=== PATIENT | female | born 1975 | race Caucasian/White ===

== ENCOUNTER 2017-06-13 19:40 | Emergency (ER) | payer OTHER ==
[~2017-06-13] VITALS: Ht 154.9 cm; Wt 66.5 kg
[~2017-06-13 19:40] MED LIST: ACET500C5 PO; BACTDS PO; CEPH-443 PO; IBUP-1542 PO; IBUP-725; NITR-58 PO
[2017-06-13 19:49] VITALS: Ht 154.9 cm; Wt 66.5 kg
[2017-06-13] MEDS ORDERED: ONDANSETRON 4 MG INJ IV STA (20:12)
[2017-06-13] MEDS ORDERED: ACETAMINOPHEN 325 MG TAB PO STA (20:12)
[2017-06-13] MEDS ORDERED: SOD CHLORIDE 0.9% 1,000 ML IV STA (20:12)
--- NOTE | 2017-06-13 20:46 | ERD ---
ER Documentation Chief Complaint Date/Time DATE: 06/13/17 TIME: 20:39 Chief Complaint right flank pain x 1 day, states 9 weeks , denies vb. on atb HPI This is a 41-year-old female, 7 para 4 sab 2, who is approximately 9 weeks , presents the emergency department for complaints of gradually worsening right flank pain which began 2 hours prior to arrival. Patient states that she has been experiencing intermittent sharp pain which she currently rates at a 0 but increases up to a 7. Patient denies other abdominal pain, dysuria, hematuria, nausea, vomiting, or diarrhea. Patient denies any vaginal bleeding. She denies fever. Patient states that 2 weeks ago she was diagnosed with a UTI and given a prescription for amoxicillin. Patient states that she frequently gets urinary tract infections and is being followed by her primary care. She also notes that she is undergoing a dental procedure tomorrow and therefore is still taking the amoxicillin. ROS All systems reviewed and are negative except as per history of present illness. Medications Home Meds Active Scripts Acetaminophen* (Tylenol*) 325 Mg Tablet, 2 TAB PO Q6 Y for PAIN AND OR ELEVATED TEMP, #20 TAB Prov:DARREN PEREZ PA-C 06/13/17 Cephalexin* (Keflex*) 500 Mg Capsule, 500 MG PO QID for 7 Days, CAP Prov:HEBER NEWTON ECONOMIC MANAGER 06/27/16 Acetaminophen* (Tylophen*) 500 Mg Capsule, 1 CAP PO Q6H Y for PAIN AND OR ELEVATED TEMP, #20 CAP Prov:HEBER NEWTON NP 06/27/16 Ibuprofen* (Motrin*) 600 Mg Tab, 600 MG PO Q6, #20 TAB Prov:MARIELA TAMAYO I. ECONOMIC MANAGER 02/19/16 Sulfamethoxazole-Trimethoprim* (Bactrim* DS) 800-160 Mg Tab, 1 TAB PO BID, #14 TAB Prov:MARIELA TAMAYO I. ECONOMIC MANAGER 02/19/16 Ibuprofen* (Motrin*) 600 Mg Tab, 600 MG PO BID Y for PAIN, #30 TAB 0 Refills Prov:STEPHAN SARABIA PA-C 11/20/15 Nitrofurantoin Monohyd Macrocr* (Macrobid*) 100 Mg Capsr, 100 MG PO BID for 14 Days, CAP 0 Refills Prov:STEPHAN SARABIA PA-C 11/20/15 Reported Medications Ibuprofen (Motrin) 400 Mg Tablet 08/12/10 Allergies Allergies: Coded Allergies: No Known Allergy (Verified , 10/13/11) PMhx/Soc History of Surgery: Yes (CHOLECYSTECTOMY) Anesthesia Reaction: No Hx Neurological Disorder: No Hx Respiratory Disorders: No Hx Cardiac Disorders: No Hx Psychiatric Problems: No Hx Miscellaneous Medical Probl: No Hx Alcohol Use: No Hx Substance Use: No Hx Tobacco Use: No Physical Exam Vitals Vital Signs Date Time Temp Pulse Resp B/P Pulse Ox O2 Delivery O2 Flow Rate FiO2 06/13/17 19:49 99.8 87 20 128/67 97 Physical Exam Const: Well-developed, well-nourished, in no acute distress Head: Atraumatic Eyes: Normal Conjunctiva ENT: Normal External Ears, Nose and Mouth. Neck: Full range of motion..~ No meningismus. Resp: Clear to auscultation bilaterally Cardio: Regular rate and rhythm, no murmurs Abd: Soft, non tender, non distended. Normal bowel sounds Skin: No petechiae or rashes Back: Right-sided flank tenderness to palpation. No midline tenderness. Ext: No cyanosis, or edema : Deferred Neur: Awake and alert Psych: Normal Mood and Affect Result Diagram: 06/13/17203706/13/172037 Results 24 hrs Laboratory Tests Test 06/13/17 20:38 White Blood Count 11.710^3/ul Red Blood Count 4.3810^6/ul Hemoglobin 13.6g/dl Hematocrit 39.0% Mean Corpuscular Volume 89.0fl Mean Corpuscular Hemoglobin 31.1pg Mean Corpuscular Hemoglobin Concent 34.9g/dl Red Cell Distribution Width 11.9% Platelet Count 89084^3/UL Mean Platelet Volume 9.6fl Neutrophils % 65.6% Lymphocytes % 23.8% Monocytes % 6.8% Eosinophils % 2.8% Basophils % 0.4% Neutrophils # 7.710^3/ul Lymphocytes # 2.810^3/ul Monocytes # 0.810^3/ul Eosinophils # 0.310^3/ul Basophils # 0.110^3/ul Nucleated Red Blood Cells # 0.010^3/ul Urine Color STRAW Urine Clarity SLIGHTLY CLOUDY Urine pH 7.0 Urine Specific [place] 1.008 Urine Ketones NEGATIVEmg/dL Urine Nitrite NEGATIVEmg/dL Urine Bilirubin NEGATIVEmg/dL Urine Urobilinogen NEGATIVEmg/dL Urine Leukocyte Esterase NEGATIVELeu/ul Urine Microscopic RBC 5/HPF Urine Microscopic WBC 5/HPF Urine Squamous Epithelial Cells FEW/HPF Urine Hemoglobin NEGATIVEmg/dL Urine Glucose NEGATIVEmg/dL Urine Total Protein NEGATIVEmg/dl Sodium Level 140mmol/L Potassium Level 3.9mmol/L Chloride Level 98mmol/L Carbon Dioxide Level 28mmol/L Anion Gap 18 Blood Urea Nitrogen 12mg/dl Creatinine 0.50mg/dl Glucose Level 96mg/dl Calcium Level 9.7mg/dl Total Bilirubin 0.1mg/dl Direct Bilirubin 0.00mg/dl Indirect Bilirubin 0.1mg/dl Aspartate Amino Transf (AST/SGOT) 24IU/L Alanine Aminotransferase (ALT/SGPT) 34IU/L Alkaline Phosphatase 63IU/L Total Protein 7.5g/dl Albumin 4.1g/dl Globulin 3.40g/dl Albumin/Globulin Ratio 1.20 Beta HCG, Quantitative 21971.0mIU/ml Current Medications Medications (Trade) Dose Ordered Sig/Elyse Route PRN Reason Start Time Stop Time Status Last Admin Dose Admin Sodium Chloride (NS) 1,000 ml @ 1,000 mls/hr Q1H STAT IV 06/13/17 20:12 06/13/17 21:11 DC 06/13/17 20:48 Acetaminophen (Tylenol Tab) 650 mg ONCE STAT PO 06/13/17 20:12 06/13/17 20:22 DC 06/13/17 20:48 Ondansetron HCl (Zofran Inj) 4 mg ONCE STAT IV 06/13/17 20:12 06/13/17 20:22 DC Procedures/MDM PROCEDURE: US OB. CLINICAL INDICATION: , lower back pain. Clinical estimate gestational age is 8 weeks 6 days with estimated date of delivery 01/17/2018 TECHNIQUE: Transabdominal and transvaginal views of the pelvis are available for review. COMPARISON: No prior studies are available for comparison. FINDINGS: [place]-rump length: 1.77 cm, 8 weeks 2 days gestational age Mean gestational sac diameter: 2.98 cm, 8 weeks 0 days gestational age heart rate: No embryonic heart activity seen. Ultrasound estimated gestational age: 8 weeks 1 day Neither ovary is seen. No adnexal mass or free intrapelvic fluid is seen. IMPRESSION: Failed intrauterine . Discussed with emergency department charge nurse Merle at 10:58 p.m. on 06/13/2017. RPTAT: HJES .Elvis Dangelo MD, Date Time Electronically viewed and signed by .Elvis Dangelo MD, on 06/13/2017 23:03 .S/ CC: DARREN PEREZ PA-C This is a 41-year-old female who is approximately 9 weeks who presents the emergency department for complaints of right-sided flank pain which began today. She was diagnosed with a UTI 2 weeks ago and is currently taking amoxicillin for both her UTI and an upcoming dental procedure. Patient denies nausea, vomiting, diarrhea, vaginal bleeding, dysuria, hematuria, or fever. Patient is well-appearing and nontoxic upon arrival. Vital signs reviewed. Patient afebrile, not tachycardic, normotensive and non-hypoxic upon arrival. Patient received Tylenol as well as a bolus of fluids while in the emergency department. CBC showed mildly elevated white blood cells however little evidence of significant systemic infection or severe anemia. CMP showed no evidence of electrolyte abnormalities, severe acidosis, alkalosis , renal failure, or liver disease. UA showed no evidence of acute infection or hematuria. Urine was sent for culture as patient has history of chronic UTIs[place] [address]. This is less than expected hCG levels at 9 weeks which be between 25,000 and 288,000. Pelvic ultrasound with evidence of a failed intrauterine as there is no heart rate. History and Physical As Well As Lab and Imaging Studies, Consistent with failed intrauterine at Approximately 9 Weeks Gestation. Patient Denies Vaginal Bleeding or Discharge Currently. Low suspicion for acute urinary tract infection, pyelonephritis, ovarian torsion, pancreatitis, cholecystitis, severe systemic infection or sepsis. Flank pain likely the result of musculoskeletal strain or beginning stages of uterine cramping. I Instructed the patient to follow-up at this emergency department or with OB/ BOLT HEADER specialist in 48 hours for repeat beta hCG and ultrasound. I informed her of the potential for D&C procedure by her HYDROELECTRIC PLANT MAINTAINER after her repeat assessment. All lab work and imaging studies were provided to patient. She expressed understanding of and agreement with plan. Based on patient's history of present illness and physical examination the decision was made to discharge. The patient was re-evaluated after ED treatment and stabilizing measures, and symptoms have improved. There is no evidence of life threatening injuries or illnesses at this time. On re-examination, patient resting in no distress, stable vital signs, reports feeling better and safe for discharge with strict follow-up in 48 hours. Patient given return precautions. Departure Diagnosis: Primary Impression: Flank pain Additional Impressions: Termination of (fetus) demise DARREN PEREZ PA-C Jun 13, 2017 20:46
[2017-06-13 20:55] LABS: ADD SCAN DIFF NO
[2017-06-13 21:00] LABS: BASOPHIL # 0.1 10^3/ul (0.0-0.1); BASOPHILS % 0.4 % (0.0-2.0); EOSINOPHILS # 0.3 10^3/ul (0.0-0.5); EOSINOPHILS % 2.8 % (0.0-7.0); HEMOGLOBIN 13.6 g/dl (12.0-16.0); LYMPHOCYTES # 2.8 10^3/ul (0.8-2.9); LYMPHOCYTES % 23.8 % (15.0-51.0); MEAN CORPUSCULAR HEMOGLOBIN 31.1 pg (29.0-33.0); MEAN CORPUSCULAR HGB CONC 34.9 g/dl (32.0-37.0); MEAN PLATELET VOLUME 9.6 fl (7.4-10.4); MONOCYTE # 0.8 10^3/ul (0.3-0.9); MONOCYTES % 6.8 % (0.0-11.0); NEUTROPHIL # 7.7 10^3/ul (1.6-7.5); NEUTROPHILS % 65.6 % (39.0-77.0); PLATELET COUNT 290 10^3/UL (140-415); RED BLOOD COUNT 4.38 10^6/ul (4.20-5.40); RED CELL DISTRIBUTION WIDTH 11.9 % (11.5-14.5); WHITE BLOOD COUNT 11.7 10^3/ul (4.8-10.8)
[2017-06-13 21:07] LABS: ADD UMIC NO; UR ASCORBIC ACID NEGATIVE (NEGATIVE); UR BILIRUBIN (Dip) NEGATIVE (NEGATIVE); UR BLOOD (Dip) NEGATIVE (NEGATIVE); UR CLARITY SLIGHTLY CLOUDY (CLEAR); UR COLOR STRAW (YELLOW); UR GLUCOSE (Dip) NEGATIVE (NEGATIVE); UR KETONES (Dip) NEGATIVE (NEGATIVE); UR LEUKOCYTE ESTERASE (Dip) NEGATIVE Leu/ul (NEGATIVE); UR NITRITE (Dip) NEGATIVE (NEGATIVE); UR RBC 5 /HPF (0-5); UR SPECIFIC GRAVITY (Dip) 1.008 (1.003-1.030); UR SQUAMOUS EPITHELIAL CELL FEW /HPF (FEW); UR TOTAL PROTEIN (Dip) NEGATIVE (NEGATIVE); UR UROBILINOGEN (Dip) NEGATIVE (NEGATIVE)
[2017-06-13 21:18] LABS: ALBUMIN 4.1 g/dl (3.3-4.9); ALBUMIN/GLOBULIN RATIO 1.2; BILIRUBIN,INDIRECT 0.1 mg/dl (0-1.1); BILIRUBIN,TOTAL 0.1 mg/dl (0.2-1.3); CALCIUM 9.7 mg/dl (8.4-10.2); CREATININE 0.5 mg/dl (0.44-1.00); POTASSIUM 3.9 mmol/L (3.5-5.1); TOTAL PROTEIN 7.5 g/dl (6.1-8.1)
--- NOTE | 2017-06-13 23:04 | RADRPT ---
PROCEDURE: US OB. CLINICAL INDICATION: Vaginal bleeding, , lower back pain. Clinical estimate gestational age is 8 weeks 6 days with estimated date of delivery 01/17/2018 TECHNIQUE: Transabdominal and transvaginal views of the pelvis are available for review. COMPARISON: No prior studies are available for comparison. FINDINGS: [place]-rump length:1.77 cm, 8 weeks 2 days gestational age Mean gestational sac diameter: 2.98 cm, 8 weeks 0 days gestational age heart rate:No embryonic heart activity seen. Ultrasound estimated gestational age:8 weeks 1 day Neither ovary is seen. No adnexal mass or free intrapelvic fluid is seen. IMPRESSION: Failed intrauterine . Discussed with emergency department charge nurse Merle at 10:58 p.m. on 06/13/2017. RPTAT: HJES .Elvis Dangelo MD, MD Date Time Electronically viewed and signed by .Elvis Dangelo MD, MD on 06/13/2017 23:03 .S/
[2017-06-13] MEDS ORDERED: ACET325T33 PO (23:26)
[2017-06-13 23:53] VITALS: BP 106/59; PULSE 69; RESP 18; TEMP 98.1
== END 2017-06-13 23:55 | disposition home or self-care (01) ==
LOC: FTE 19:40
DX: O26.891 Other specified pregnancy related conditions, first trimester (principal); R10.9 Unspecified abdominal pain; O04.89 (Induced) termination of pregnancy with other complications; O02.1 Missed abortion
CPT/HCPCS: 76801; 76817; 80053; 81001; 84702; 85025; 87086; J7030; Z7610; 36415; 81003

== ENCOUNTER 2017-06-17 12:10 | Emergency (ER) | payer OTHER ==
[~2017-06-17] VITALS: Ht 154.9 cm; Wt 65.0 kg
[~2017-06-17 12:10] MED LIST changes: +ACET325T33 PO
[2017-06-17 12:13] VITALS: Ht 154.9 cm; Wt 65.0 kg
--- NOTE | 2017-06-17 13:48 | ERD ---
ER Documentation Chief Complaint Date/Time DATE: 06/17/17 TIME: 13:44 Chief Complaint VAG BLEED () X 2 DAYS, SCHEDULED FOR D/C TOMORROW HPI This is a 41-year-old female presenting to the emergency department for vaginal bleeding 2 days. Patient is currently 8 weeks and was scheduled for a D&C today here with Dr. Martinez. Patient states the D&C was canceled and patient was told to come in tomorrow for procedure. Patient presents because pelvic pain has worsened and patient continues to have vaginal bleeding. Patient rating pain 9/10 to suprapubic region. No fevers or chills. No nausea or vomiting. ROS All systems reviewed and are negative except as per history of present illness. Medications Home Meds Active Scripts Ibuprofen* (Motrin*) 600 Mg Tab, 600 MG PO Q6, #15 TAB Prov:FRANDY SALGADO NP 06/17/17 Acetaminophen* (Tylenol*) 325 Mg Tablet, 2 TAB PO Q6 Y for PAIN AND OR ELEVATED TEMP, #20 TAB Prov:DARREN PEREZ PA-C 06/13/17 Cephalexin* (Keflex*) 500 Mg Capsule, 500 MG PO QID for 7 Days, CAP Prov:HEBER NEWTON NP 06/27/16 Acetaminophen* (Tylophen*) 500 Mg Capsule, 1 CAP PO Q6H Y for PAIN AND OR ELEVATED TEMP, #20 CAP Prov:HEBER NEWTON NP 06/27/16 Ibuprofen* (Motrin*) 600 Mg Tab, 600 MG PO Q6, #20 TAB Prov:MARIELA TAMAYO NP 02/19/16 Sulfamethoxazole-Trimethoprim* (Bactrim* DS) 800-160 Mg Tab, 1 TAB PO BID, #14 TAB Prov:MARIELA TAMAYO NP 02/19/16 Ibuprofen* (Motrin*) 600 Mg Tab, 600 MG PO BID Y for PAIN, #30 TAB 0 Refills Prov:STEPHAN SARABIA PA-C 11/20/15 Nitrofurantoin Monohyd Macrocr* (Macrobid*) 100 Mg Capsr, 100 MG PO BID for 14 Days, CAP 0 Refills Prov:STEPHAN SARABIA PA-C 11/20/15 Reported Medications Ibuprofen (Motrin) 400 Mg Tablet 08/12/10 Discontinued Scripts Hydrocodone/Acetaminophen ([place] 5-325 Tablet) 1 Each Tablet, 1 TAB PO Q6H Y for PAIN, #7 TAB Prov:FRANDY SALGADO NP 06/17/17 Allergies Allergies: Coded Allergies: No Known Allergy (Verified , 06/17/17) PMhx/Soc History of Surgery: Yes (CHOLECYSTECTOMY) Anesthesia Reaction: No Hx Neurological Disorder: No Hx Respiratory Disorders: No Hx Cardiac Disorders: No Hx Psychiatric Problems: No Hx Miscellaneous Medical Probl: No Hx Alcohol Use: No Hx Substance Use: No Hx Tobacco Use: No Smoking Status: Never smoker Physical Exam Vitals Vital Signs Date Time Temp Pulse Resp B/P Pulse Ox O2 Delivery O2 Flow Rate FiO2 06/17/17 12:13 97.6 82 18 115/71 96 Physical Exam Const: No acute distress, alert Head: Atraumatic Eyes: Normal Conjunctiva ENT: Normal External Ears, Nose and Mouth. Neck: Full range of motion..~ No meningismus. Resp: Clear to auscultation bilaterally Cardio: Regular rate and rhythm, no murmurs Abd: Soft, non tender, non distended. Normal bowel sounds Skin: No petechiae or rashes Back: No midline or flank tenderness Ext: No cyanosis, or edema Neur: Awake and alert Psych: Normal Mood and Affect Results 24 hrs Current Medications Medications (Trade) Dose Ordered Sig/Elyse Route PRN Reason Start Time Stop Time Status Last Admin Dose Admin Acetaminophen/ Hydrocodone Bitart (Clyde (5/325)) 1 tab ONCE ONCE PO 06/17/17 14:00 06/17/17 14:30 DC Ibuprofen (Motrin) 600 mg ONCE ONCE PO 06/17/17 14:30 06/17/17 14:31 DC 06/17/17 14:32 Procedures/MDM MDM: This is a 41-year-old female presenting to the emergency department with pelvic pain and vaginal bleeding 2 days. Patient is currently 8 weeks and was scheduled today for a D&C here with Dr. Martinez. Patient states procedure was canceled and patient was told to come in tomorrow for procedure. Patient states she would like to have procedure done today because pain is severe. Patient rating pain 9/10 to suprapubic region. No active vomiting. Patient is afebrile and vital signs are stable. Spoke with laborist construction engineer, Dr. Hodge who instructed me to call Dr. Martinez. Called Dr. Matrinez at [phone] who instructed me to send patient home with prescription for Ibuprofen and states he will see patient tomorrow as scheduled procedure. Patient does not want Clyde or anything stronger than ibuprofen Patient instructed to follow-up with [facility] RN Dr. Martinez. Return to ED for any high fever, chest pain, difficulty breathing, shortness breath, wheezing, vomiting, diarrhea, abdominal pain or any new or worsening symptoms. Patient verbalizes understanding. All questions answered at discharge. Departure Diagnosis: Primary Impression: Vaginal bleeding in patient at less than 20 weeks gestation Condition: Stable FRANDY SALGADO NP Jun 17, 2017 13:48
[2017-06-17] MEDS ORDERED: HYDR-906 PO (14:03)
[2017-06-17] MEDS: HYDROCODONE/APAP (5/325) TAB PO ONE ×2 (14:25→14:27)
[2017-06-17] MEDS ORDERED: IBUPROFEN 600 MG TAB PO ONE (14:30)
[2017-06-17] MEDS ORDERED: IBUP-1542 PO (14:43)
[2017-06-18] MEDS ORDERED: CEPH500C PO (17:22)
== END 2017-06-17 15:54 | disposition home or self-care (01) ==
LOC: FTE 12:10
DX: O20.9 Hemorrhage in early pregnancy, unspecified (principal); Z3A.08 8 weeks gestation of pregnancy
CPT/HCPCS: Z7502; Z7610; 99283

== ENCOUNTER 2017-06-18 16:39 | Observation (INO) | payer OTHER ==
[~2017-06-18] VITALS: Ht 154.9 cm; Wt 67.3 kg
[~2017-06-18 16:39] MED LIST changes: -CEPH500C PO; -DIPHENHYDRAMINE 50 MG INJ IV PRN; -FENTAnyl 50 MCG/ML VIAL IV PRN; -LACTATED RINGER'S 1,000 ML IV SCH; -MEPERIDINE 25 MG INJ IV PRN; -ONDANSETRON 4 MG INJ IV PRN
--- NOTE | 2017-06-18 17:16 | ERA ---
ER Documentation Chief Complaint Date/Time DATE: 06/18/17 TIME: 17:14 Chief Complaint pelvic pain x 5 days, needs d&C, 8 weeks HPI This is a 41-year-old female who is a at approximately 8 weeks who was sent from same-day clinic. The patient was seen by Dr. Martinez for a D&C but the patient had some food. He wants the patient to be admitted to the hospital. Initially said that he would not admit the patient therefore he sent her to the emergency room. The patient has abdominal cramping that is 10 out of 10 with associated scant vaginal bleeding that is consistent with her baseline. No fevers or chills. ROS All systems reviewed and are negative except as per history of present illness. Medications Home Meds Active Scripts Ibuprofen* (Motrin*) 600 Mg Tab, 600 MG PO Q6, #15 TAB Prov:FRANDY SALGADO NP 06/17/17 Acetaminophen* (Tylenol*) 325 Mg Tablet, 2 TAB PO Q6 Y for PAIN AND OR ELEVATED TEMP, #20 TAB Prov:DARREN PEREZ PA-C 06/13/17 Cephalexin* (Keflex*) 500 Mg Capsule, 500 MG PO QID for 7 Days, CAP Prov:HEBER NEWTON NP 06/27/16 Acetaminophen* (Tylophen*) 500 Mg Capsule, 1 CAP PO Q6H Y for PAIN AND OR ELEVATED TEMP, #20 CAP Prov:HEBER NEWTON NP 06/27/16 Ibuprofen* (Motrin*) 600 Mg Tab, 600 MG PO Q6, #20 TAB Prov:MARIELA TAMAYO NP 02/19/16 Sulfamethoxazole-Trimethoprim* (Bactrim* DS) 800-160 Mg Tab, 1 TAB PO BID, #14 TAB Prov:MARIELA TAMAYO NP 02/19/16 Ibuprofen* (Motrin*) 600 Mg Tab, 600 MG PO BID Y for PAIN, #30 TAB 0 Refills Prov:STEPHAN SARABIA PA-C 11/20/15 Nitrofurantoin Monohyd Macrocr* (Macrobid*) 100 Mg Capsr, 100 MG PO BID for 14 Days, CAP 0 Refills Prov:STEPHAN SARABIA PA-C 11/20/15 Reported Medications Ibuprofen (Motrin) 400 Mg Tablet 08/12/10 Discontinued Scripts Hydrocodone/Acetaminophen ([place] 5-325 Tablet) 1 Each Tablet, 1 TAB PO Q6H Y for PAIN, #7 TAB Prov:FRANDY SALGADO QUALITY TECHNICIAN 06/17/17 Allergies Allergies: Coded Allergies: No Known Allergy (Verified , 06/17/17) PMhx/Soc History of Surgery: Yes (CHOLECYSTECTOMY) Anesthesia Reaction: No Hx Neurological Disorder: No Hx Respiratory Disorders: No Hx Cardiac Disorders: No Hx Psychiatric Problems: No Hx Miscellaneous Medical Probl: No Hx Alcohol Use: No Hx Substance Use: No Hx Tobacco Use: No FmHx Family History: No diabetes Physical Exam Vitals Vital Signs Date Time Temp Pulse Resp B/P Pulse Ox O2 Delivery O2 Flow Rate FiO2 06/18/17 16:50 99.1 74 18 129/69 100 Physical Exam General: Uncomfortable Head: Normocephalic, atraumatic. Eyes: EOM intact ENT: Moist mucous membranes Neck: Full ROM Respiratory: No respiratory distress Cardiovascular: Good capillary refil Abdominal: Nondistended, mild diffuse tenderness : Deferred MSK: No edema, no unilateral swelling, 5/5 strength Neurologic: Alert and oriented, moving all extremities, normal speech, steady gait Skin: No rash Psych: Normal mood Procedures/MDM The patient was sent to the emergency room to be admitted even though there is a bed available. Dr. Martinez was contacted. He states that the patient should be admitted even though he sent her from same-day surgery. He states that he will admit the patient on there is a bed available on the fourth floor. The patient had a medical screening examination in the emergency department and was taken directly to the floor for further management and treatment of missed . He states that he will take the patient to surgery at 9 AM tomorrow. Departure Diagnosis: Primary Impression: Missed Condition: Stable RAJI WAHL MD Jun 18, 2017 17:16
[2017-06-18] MEDS ORDERED: CEPH500C PO (17:22)
[2017-06-18] MEDS ORDERED: KETOROLAC 30 MG INJ IV STA (18:15)
[2017-06-18 18:22] VITALS: Ht 154.9 cm; Wt 67.3 kg
[2017-06-18 18:30] VITALS: BP 126/72; PULSE 75; RESP 18
[2017-06-18] MEDS ORDERED: LACTATED RINGER'S 1,000 ML IV SCH (19:00)
[2017-06-18 19:28] LABS: BASOPHILS % 0.3 % (0.0-2.0); EOSINOPHILS # 0.5 10^3/ul (0.0-0.5); HEMOGLOBIN 12.8 g/dl (12.0-16.0); LYMPHOCYTES # 2.8 10^3/ul (0.8-2.9); LYMPHOCYTES % 23.4 % (15.0-51.0); MEAN CORPUSCULAR HEMOGLOBIN 31.1 pg (29.0-33.0); MEAN CORPUSCULAR HGB CONC 34.6 g/dl (32.0-37.0); MEAN PLATELET VOLUME 9.6 fl (7.4-10.4); MONOCYTE # 0.7 10^3/ul (0.3-0.9); MONOCYTES % 5.6 % (0.0-11.0); NEUTROPHIL # 7.8 10^3/ul (1.6-7.5); NEUTROPHILS % 66.2 % (39.0-77.0); PLATELET COUNT 246 10^3/UL (140-415); RED BLOOD COUNT 4.11 10^6/ul (4.20-5.40); RED CELL DISTRIBUTION WIDTH 11.9 % (11.5-14.5); WHITE BLOOD COUNT 11.9 10^3/ul (4.8-10.8)
[2017-06-18 19:43] LABS: INR 0.92; PROTIME 12.4 Sec (12.2-14.2)
[2017-06-18 19:44] LABS: PARTIAL THROMBOPLASTIN TIME 26.8 Sec (25.0-35.0)
[2017-06-18 19:47] LABS: CALCIUM 8.6 mg/dl (8.4-10.2); CREATININE 0.62 mg/dl (0.44-1.00); POTASSIUM 3.7 mmol/L (3.5-5.1)
[2017-06-18 19:57] VITALS: BP 107/66; PULSE 65; RESP 17
[2017-06-18 23:20] VITALS: BP 115/53; PULSE 66; RESP 17
[2017-06-18 23:35] VITALS: BP 100/58; PULSE 67
[2017-06-18 23:50] VITALS: BP 107/62; PULSE 69
[2017-06-19] VITALS (8 sets, daily range): BP systolic 89–108; BP diastolic 50–61; PULSE 68–78; RESP 17–19
[2017-06-19] MEDS ORDERED: IBUPROFEN 600 MG TAB PO ONE (05:30)
--- NOTE | 2017-06-19 06:33 | OPR ---
DATE OF OPERATION: 06/18/2017 PREOPERATIVE DIAGNOSIS: Missed . POSTOPERATIVE DIAGNOSIS: Incomplete . PROCEDURE: Suction curettage. ANESTHESIA: General. ANESTHESIOLOGIST: MD Theo SURGEON: Dorothy Cheung MD ESTIMATED BLOOD LOSS: Approximately 30 mL from the procedure. DESCRIPTION OF PROCEDURE: Under the appropriate induction of general anesthesia, the patient was placed in the dorsal lithotomy position. Perineal area and vagina were prepped and draped in the usual aseptic manner. Prior to preparation of the surgery, there was a large clot escaped from the vaginal cavity. Pelvic examination done. On inspection of external genitalia revealed no gross abnormality. On bimanual examination, the uterus was retroverted with prolapse, size approximately 10 weeks' gestational size, firm in consistency. There was no palpable pathology. Cervix was patent enough to put a finger in, without resistance. Weighted speculum was introduced. Cervix was identified, which was parous-appearing, clear. Anteriorly, the cervix was grasped with a single-tooth tenaculum. Cavity was sounded, which was 11 cm in depth. Os was not dilated because it is already patent to size number 12 Hegar dilator. Uterine suction curette, size 10, was connected to the suction machine. It was introduced into the uterine cavity. The entire uterine cavity was suctioned in all directions, obtaining moderate amount of products of conception. This was followed by sharp curettage in all directions, obtaining a small amount of additional tissue, which was sent to Pathology. Ten units of Pitocin were given through the IV infusion and no excessive bleeding noted. The procedure was completed. All the instruments were removed from the operative field. The patient withstood the procedure well and was sent to Recovery in stable condition. Sponge count correct. Estimated blood loss from the procedure only 30 mL. Dictated By: Dorothy Cheung MD /[email or web address]/jeri /Document#: [id number]
[2017-06-19] MEDS ORDERED: OXYCODONE/ACETAMINOPHEN (5/325) TAB PO ONE (12:00)
--- NOTE | 2017-06-19 14:06 | HP ---
Date/Time of Note Date/Time of Note DATE: 06/19/17 TIME: 14:02 Assessment/Plan VTE Prophylaxis VTE Prophylaxis Intervention: ambulation Lines/Catheters IV Catheter Type (from Nrs): Peripheral IV Assessment/Plan Assessment/Plan Dilation of cervix and suction curretage of the uterus HPI/ROS Admit Date/Time Admit Date/Time Jun 18, 2017 at 16:54 Hx of Present Illness admitted C/O vaginal bleeding and uterine crams had 8 weeks size demise ROS Constitutional: improved, no complaints Eyes: no complaints ENT: no complaints Respiratory: no complaints Cardiovascular: no complaints Gastrointestinal: no complaints Genitourinary: no complaints Musculoskeletal: no complaints Skin: no complaints Neurologic: no complaints Endocrine: no complaints Lymphatic: no complaints Psychological: nl mood/affect, no complaints Immunologic: no complaints PMH/Family/Social Past Medical History Medical History: other (mitral valve prolapse ) Past Surgical History Past Surgical Hx: other Family History Significant Family History: no pertinent family hx Social History Alcohol Use: none Smoking Status: Never smoker Drug Use: none Exam/Review of Systems Vital Signs Vitals Vital Signs Date Time Temp Pulse Resp B/P Pulse Ox O2 Delivery O2 Flow Rate FiO2 06/19/17 07:30 98.9 62 19 93/58 100 06/19/17 04:00 Room Air Intake and Output 06/18/17 06/18/17 06/19/17 15:00 23:00 07:00 Intake Total 1000 ml Output Total 500 ml Balance 500 ml Exam Constitutional: alert, oriented, well developed Psych: nl mood/affect, no complaints Head: atraumatic, normocephalic Eyes: EOMI, PERRL, nl conjunctiva, nl lids, nl sclera ENMT: nl external ears & nose, nl lips & teeth, nl nasal mucosa & septum Neck: non-tender, supple Respiratory: clear to auscultation, normal air movement Cardiovascular: nl pulses, regular rate and rhythm Gastrointestinal: nl liver, spleen, non-tender, soft Genitourinary - Female: other (has minimal vaginal bleeding ) Musculoskeletal: nl extremities to inspection Extremities: normal pulses Neurological: AUTO BODY SERVICE MECHANIC II-XII intact, nl mental status, nl speech, nl strength Skin: nl turgor, No rash or lesions Lymph: nl lymph nodes Labs Result Diagram: 06/[id number] PAULA SEVILLA MD Jun 19, 2017 14:06
[2017-06-19] MEDS ORDERED: ONDANSETRON 4 MG INJ ONE (18:02)
[2017-06-19] MEDS ORDERED: MIDAZOLAM 1 MG/ML 2 ML INJ ONE (18:02)
[2017-06-19] MEDS ORDERED: PROPOFOL 20 ML ONE (18:02)
[2017-06-19] MEDS ORDERED: CEFAZOLIN 1 GM INJ ONE (18:02)
[2017-06-19] MEDS ORDERED: FENTAnyl 50 MCG/ML VIAL ONE (18:02)
[2017-06-19] MEDS ORDERED: OXYTOCIN 10 UNIT INJ ONE (18:02)
[2017-06-19] MEDS ORDERED: LIDOCAINE 2% (SDV) 5 ML INJ ONE (18:02)
== END 2017-06-19 14:50 | disposition home or self-care (01) ==
LOC: E/R 16:39 → MS1 16:54
PROVIDERS: ADMIT Obstetrics & Gynecology; ATTEND Obstetrics & Gynecology
DX: O03.4 Incomplete spontaneous abortion without complication (principal); Z90.49 Acquired absence of other specified parts of digestive tract
CPT/HCPCS: 59812; 80048; 85025; 85610; 85730; J0690; J1885; J2250; J2405; J2590; J3010; J7120; Z7500; Z7502; Z7610; G0378

== ENCOUNTER → 2017-06-18 | Day surgery (SDC) | payer OTHER ==
[2017-06-18] VITALS (8 sets, daily range): BP systolic 94–102; BP diastolic 56–60; PULSE 66–79; RESP 16–18
[~2017-06-18] MED LIST changes: +CEPH500C PO; +DIPHENHYDRAMINE 50 MG INJ IV PRN; +FENTAnyl 50 MCG/ML VIAL IV PRN; +LACTATED RINGER'S 1,000 ML IV SCH; +MEPERIDINE 25 MG INJ IV PRN; +ONDANSETRON 4 MG INJ IV PRN
== END | disposition home or self-care (01) ==
LOC: SDS 15:13
PROVIDERS: ATTEND Obstetrics & Gynecology
DX: O02.1 Missed abortion (principal); Z53.9 Procedure and treatment not carried out, unspecified reason
CPT/HCPCS: 88305; Z7512; Z7610

== ENCOUNTER 2017-08-19 14:01 | Emergency (ER) | payer OTHER ==
[~2017-08-19] VITALS: Ht 157.5 cm; Wt 68.0 kg
[~2017-08-19 14:01] MED LIST changes: -ACET325T33 PO; -ACET500C5 PO; -BACTDS PO; -CEPH-443 PO; +CEPH500C PO; -IBUP-1542 PO; -IBUP-725; -NITR-58 PO
[2017-08-19 14:06] VITALS: Ht 157.5 cm; Wt 68.0 kg
[2017-08-19] MEDS ORDERED: IBUPROFEN 600 MG TAB PO ONE (16:30)
--- NOTE | 2017-08-19 16:32 | ERD ---
ER Documentation Chief Complaint Date/Time DATE: 08/19/17 TIME: 16:31 Chief Complaint pt bib self with c/o right elbow pain s/p hitting it yesterday HPI 41-year-old female complains of right posterior elbow pain after hitting her elbow against a metal towel rack yesterday evening. She complains of achy localized pain at the lateral aspect and posterior elbow, worse in movement and better at rest. She denies any other injuries ROS All systems reviewed and are negative except as per history of present illness. Medications Home Meds Active Scripts Ibuprofen* (Motrin*) 600 Mg Tab, 600 MG PO Q6, #30 TAB Prov:HOMAR RUSSELL PA-C 08/19/17 Reported Medications Cephalexin* (Cephalexin*) 500 Mg Capsule, 500 MG PO BID for 7 Days, #14 CAP START DATE-06/16/17 FOR 7 DAYS 06/18/17 Allergies Allergies: Coded Allergies: No Known Allergy (Verified , 06/18/17) PMhx/Soc History of Surgery: Yes (GALLBLADDER REMOVAL) Anesthesia Reaction: No Hx Neurological Disorder: No Hx Respiratory Disorders: No Hx Cardiac Disorders: No Hx Psychiatric Problems: No Hx Miscellaneous Medical Probl: No Hx Alcohol Use: No Hx Substance Use: No Hx Tobacco Use: No Smoking Status: Never smoker Physical Exam Vitals Vital Signs Date Time Temp Pulse Resp B/P Pulse Ox O2 Delivery O2 Flow Rate FiO2 08/19/17 14:06 99.5 84 18 119/72 100 Physical Exam General: Well-developed, well-nourished. The patient appears in no acute distress. HEENT: Head is normocephalic, atraumatic. No scleral icterus. Neck: Supple. Nontender. Lungs: Clear to auscultation. Normal air movement. Heart: Regular rate and rhythm. S1 and S2 are normal. No murmurs, gallops, or rubs. Abdomen: Nondistended. Extremities: Right radial head tenderness to palpation, soft tissue swelling. There is no crepitus, warmth or erythema. She is able to flex and extend the elbow fully. Patient is able to make a fist. Neurologic: Alert and oriented 3. No focal deficits. Normal speech and gait. Skin: Normal turgor. No rash or lesions. Results 24 hrs Current Medications Medications (Trade) Dose Ordered Sig/Elyse Route PRN Reason Start Time Stop Time Status Last Admin Dose Admin Ibuprofen (Motrin) 600 mg ONCE ONCE PO 08/19/17 16:30 08/19/17 16:31 DC 08/19/17 16:20 DIAGNOSTIC IMAGING REPORT Patient: MANDY GILES : 1975 Age: 41 Sex: F MR #: [id number] DOS: 08/19/17 1611 Ordering MD: HOMAR RUSSELL PA-C Location: [facility] Room/Bed: PROCEDURE: XR right elbow. CLINICAL INDICATION: Trauma. Right elbow pain. TECHNIQUE: Three views. Frontal, lateral, and oblique. COMPARISON: No prior study is available for comparison. FINDINGS: There is no fracture or dislocation. There is soft tissue swelling posteriorly. The soft tissues are otherwise normal. Articular surfaces are intact. There is no lytic or blastic lesion. There is no radiopaque foreign body. IMPRESSION: 1. Posterior soft tissue swelling. 2. Otherwise unremarkable images of the right elbow. RPTAT: QQ .Jerod Marley MD, MD Date Time Electronically viewed and signed by .Jerod Marley MD, MD on 08/19/2017 17:08 .R/ CC: HOMAR RUSSELL PA-C Procedures/MDM 41-year-old female comes in with traumatic right elbow pain, most consistent with a contusion of the radial head. There is no evidence of any fractures seen , or fat pad on the x-ray. Patient is neurovascularly intact, was placed in a sling for comfort will be advised to continue ibuprofen for pain. Departure Diagnosis: Primary Impression: Contusion of elbow, right Condition: Good HOMAR RUSSELL PA-C Aug 19, 2017 16:32
--- NOTE | 2017-08-19 17:08 | RADRPT ---
PROCEDURE: XR right elbow. CLINICAL INDICATION: Trauma. Right elbow pain. TECHNIQUE: Three views. Frontal, lateral, and oblique. COMPARISON: No prior study is available for comparison. FINDINGS: There is no fracture or dislocation. There is soft tissue swelling posteriorly. The soft tissues are otherwise normal. Articular surfaces are intact. There is no lytic or blastic lesion. There is no radiopaque foreign body. IMPRESSION: 1. Posterior soft tissue swelling. 2. Otherwise unremarkable images of the right elbow. RPTAT: QQ .Jerod Marley MD, MD Date Time Electronically viewed and signed by .Jerod Marley MD, on 08/19/2017 17:08 .R/
[2017-08-19] MEDS ORDERED: IBUP-1542 PO (17:19)
[2017-08-19 17:24] VITALS: BP 126/72; PULSE 78; RESP 18; TEMP 98.1
== END 2017-08-19 17:25 | disposition home or self-care (01) ==
LOC: FTE 14:01
DX: S50.01XA Contusion of right elbow, initial encounter (principal); W22.8XXA Striking against or struck by other objects, initial encounter; Y92.9 Unspecified place or not applicable
CPT/HCPCS: 73080; Z7502; Z7610

== ENCOUNTER 2019-06-22 21:40 | Emergency (ER) | payer OTHER ==
[~2019-06-22] VITALS: Ht 154.9 cm; Wt 65.5 kg
[~2019-06-22 21:40] MED LIST changes: +BEN50 PO; +GUAI-637 PO; +IBUP-1542 PO; +NITR-58 PO; +PRED20TA PO; +SODI126M NASAL
[2019-06-22 21:42] VITALS: BP 129/86; PULSE 60; RESP 16; Ht 154.9 cm; Wt 65.5 kg
[2019-06-22] MEDS ORDERED: DIPHENHYDRAMINE 50 MG CAP PO ONE (22:30)
[2019-06-22] MEDS ORDERED: FAMOTIDINE 20 MG TAB PO ONE (22:30)
[2019-06-22] MEDS ORDERED: predniSONE 20 MG TAB PO ONE (22:30)
--- NOTE | 2019-06-23 01:35 | ERD ---
ER Documentation Chief Complaint Chief Complaint RASH X SATURDAY. HPI 43-year-old male presents complaint of rash since Saturday. States that she has itchy red foss on her legs and arms bilaterally. Denies any wheezing, shortness of breath, stridor, respiratory distress, abdominal pain, vomiting. No known allergies that she is aware of. Not taking any treatments. Denies any fevers, chills. ROS All systems reviewed and are negative except as per history of present illness. Medications Home Meds Active Scripts Prednisone* (Prednisone*) 20 Mg Tab, 60 MG PO DAILY for 4 Days, TAB Prov:ANGELINA GUERRA 06/22/19 Diphenhydramine Hcl* (Benadryl*) 50 Mg Cap, 50 MG PO Q6H PRN for ITCHING/RASH, #30 CAP Prov:ANGELINA GUERRA 06/22/19 Guaifenesin* (Robitussin*) 100 Mg/5 Ml Syrup, 200 MG PO Q4H PRN for COUGH, #120 ML Prov:JUNIOR BALLESTEROS. MANAGER VIDEO 08/05/18 Sodium Chloride (Saline Nasal Mist) 126 Ml Mist, 2 SPRAY NASAL Q2H PRN for NASAL CONGESTION, #1 BOTTLE Prov:JUNIOR BALLESTEROS. MANAGER VIDEO 08/05/18 Nitrofurantoin Monohyd Macrocr* (Macrobid*) 100 Mg Capsr, 100 MG PO BID for 7 Days, CAP Prov:JUNIOR BALLESTEROS. MANAGER VIDEO 08/05/18 Ibuprofen* (Motrin*) 600 Mg Tab, 600 MG PO Q6, #30 TAB Prov:HOMAR RUSSELL PA-C 08/19/17 Reported Medications Cephalexin* (Cephalexin*) 500 Mg Capsule, 500 MG PO BID for 7 Days, #14 CAP START DATE-06/16/17 FOR 7 DAYS 06/18/17 Allergies Allergies: Coded Allergies: No Known Allergy (Verified , 08/05/18) PMhx/Soc History of Surgery: Yes (GALLBLADDER REMOVAL, d and c) Anesthesia Reaction: No Hx Neurological Disorder: No Hx Respiratory Disorders: No Hx Cardiac Disorders: No Hx Psychiatric Problems: No Hx Miscellaneous Medical Probl: No Hx Alcohol Use: No Hx Substance Use: No Hx Tobacco Use: No Smoking Status: Never smoker FmHx Family History: No diabetes, No coronary disease, No other Physical Exam Vitals Vital Signs Date Temp Pulse Resp B/P (MAP) Pulse Ox O2 O2 Flow FiO2 Time Delivery Rate 06/22/19 98.6 60 16 129/86 97 21:42 (100) Physical Exam Const: No acute distress Head: Atraumatic Eyes: Normal Conjunctiva ENT: Normal External Ears, Nose and Mouth. Neck: Full range of motion. No meningismus. Resp: Clear to auscultation bilaterally Cardio: Regular rate and rhythm, no murmurs Abd: Soft, non tender, non distended. Normal bowel sounds Skin: Back: No midline or flank tenderness Ext: No cyanosis, or edema Neur: Awake and alert Psych: Normal Mood and Affect Results 24 hrs Current Medications Medications Dose Sig/Elyse Start Time Status Last (Trade) Ordered Route PRN Stop Time Admin Dose Reason Admin Prednisone 60 mg ONCE ONCE 06/22/19 DC 06/22/19 (Prednisone) PO 22:30 22:37 06/22/19 22:31 Famotidine 40 mg ONCE ONCE 06/22/19 DC 06/22/19 (Pepcid) PO 22:30 22:36 06/22/19 22:31 50 mg ONCE ONCE 06/22/19 DC 06/22/19 Diphenhydrami PO 22:30 22:36 ne HCl 06/22/19 22:31 (Benadryl) Procedures/MDM MDM: Patients presentation is consistent with allergic reaction. Patient treated with prednisone, pepcid, and benadryl. Patient discharged with 4 day course of prednisone and benadryl. At no time during the ER course did patient exhibit signs of anaphylaxis, respiratory distress, or angioedema. Patient's vitals were WNL throughout the ER course at time of discharge. At this time, patient is stable for discharge and outpatient management. I have instructed the patient to follow-up with his/her primary care physician in 1-2 days. I have discussed with the patient the possibility of needing to see a specialist for further workup and imaging studies if symptoms persist. I have instructed the patient to promptly return to the ER for any new or worsening symptoms including but not limited to increased pain, fever, nausea, vomiting, weakness or LOC. The patient and/or family expressed understanding of and agreement with this plan. All questions were answered. Home care instructions were provided. DISCLAIMER: Inadvertent spelling and grammatical errors are likely due to EHR/dictation software use and do not reflect on the overall quality of patient care. Also, please note that the electronic time recorded on this note does not necessarily reflect the actual time of the patient encounter. Departure Diagnosis: Primary Impression: Rash Condition: Stable Patient Instructions: Allergic Reaction, Other (General) Referrals: COMMUNITY CLINICS YOU HAVE RECEIVED A MEDICAL SCREENING EXAM AND THE RESULTS INDICATE THAT YOU DO NOT HAVE A CONDITION THAT REQUIRES URGENT TREATMENT IN THE EMERGENCY DEPARTMENT. FURTHER EVALUATION AND TREATMENT OF YOUR CONDITION CAN WAIT UNTIL YOU ARE SEEN IN YOUR DOCTORS OFFICE WITHIN THE NEXT 1-2 DAYS. IT IS YOUR RESPONSIBILITY TO MAKE AN APPOINTMENT FOR FOLOW-UP CARE. IF YOU HAVE A PRIMARY DOCTOR --you should call your primary doctor and schedule an appointment IF YOU DO NOT HAVE A PRIMARY DOCTOR YOU CAN CALL OUR PHYSICIAN REFERRAL HOTLINE AT IF YOU CAN NOT AFFORD TO SEE A PHYSICIAN YOU CAN CHOSE FROM THE FOLLOWING [facility] [address] [facility]. [facility] [address] [facility] [address] [facility] [address] [facility] [address] [facility]. [facility]. [address] Additional Instructions: FOLLOW UP WITH YOUR PRIMARY CARE PHYSICIAN TOMORROW.Return to this facility if you are not improving as expected. ANGELINA GUERRA Jun 23, 2019 01:35
== END 2019-06-22 22:46 | disposition home or self-care (01) ==
LOC: FTE 21:40
DX: R21 Rash and other nonspecific skin eruption (principal)
CPT/HCPCS: J7512; Z7502; Z7610; 99283